=== PATIENT | female | born 1985 | race Caucasian/White ===

== ENCOUNTER 2017-08-26 01:41 | Emergency (ER) | payer OTHER ==
[~2017-08-26] VITALS: Ht 175.3 cm; Wt 114.7 kg
[~2017-08-26 01:41] MED LIST: LEVOTHYROXINE125 MCG; METHYLPHENIDATE36 MG; NORGESTIMATE-E1 EACH; PROTONIX20 MG PO; VALIUM5 MG PO
[2017-08-26 02:18] LABS: BASOPHIL COUNT 0.1 K/uL (0-0.1); EOSINOPHIL (%) 2.6 % (0-5); EOSINOPHIL COUNT 0.3 K/uL (0-0.3); IMMATURE GRANULOCYTE (%) 0.4 % (0.0-0.7); INSTRUMENT ABS NEUTROPHIL CT 5.1 K/uL; LYMPHOCYTE COUNT 3.9 K/uL (1.0-2.8); MCH 29.9 PG (29.0-34.0); MCHC 34.6 G/DL (30.0-36.0); MCV 86.5 FL (83-99); MEAN PLAT.VOLUME 9.2 uM^3 (9.5-12.4); MONOCYTE (%) 6.6 % (3-12); MONOCYTE COUNT 0.7 K/uL (0-0.8); NEUTROPHIL (%) 51.1 % (45-76); NEUTROPHIL COUNT 5.1 K/uL (1.8-6.4); PLATELET COUNT 352 K/uL (156-360); RBC DIS.WIDTH-CV 11.5 % (11.8-14.6); RED BLOOD COUNT 4.51 M/uL (3.80-5.20)
[2017-08-26 02:30] LABS: CHLORIDE 107 mEq/L (99-109); POTASSIUM 3.9 mEq/L (3.7-5.4); SODIUM 141 mEq/L (136-147)
[2017-08-26 02:32] LABS: GLUCOSE 99 mg/dL (70-99)
[2017-08-26 02:33] LABS: ANION GAP 12 MEQ/L (2-14)
[2017-08-26 02:34] LABS: TOTAL BILIRUBIN 0.2 mg/dL (0.0-1.0)
[2017-08-26 02:36] LABS: ALKALINE PHOSPHATASE 89 IU/L (3-129); GFR ESTIMATE (CALCULATED) > 59 mL/min/
[2017-08-26 02:37] LABS: UREA NITROGEN (BUN) 13 mg/dL (9-23)
[2017-08-26 02:39] LABS: LIPASE 23 U/L (1.0-51.0)
[2017-08-26 02:45] LABS: QUANTITATIVE HCG < 4.0 MIU/ML
[2017-08-26 02:51] LABS: ADD MIUA? YES; BILIRUBIN NEGATIVE; BLOOD MODERATE; COLOR YELLOW ((YELLOW)); GLUCOSE (STRIP) NEGATIVE; KETONES 5; LEUKOCYTES TRACE; NITRITE NEGATIVE; PROTEIN (STRIP) NEGATIVE; SPECIFIC GRAVITY 1.023 (1.000-1.030); UROBILINOGEN 0.2 MG/DL (0.2-1.0)
[2017-08-26 02:54] LABS: BACTERIA RARE /HPF; EPITHELIAL CELLS 1+ /HPF; MUCUS TRACE /LPF; RED BLOOD CELLS 0-5 /HPF (0-5); WHITE BLOOD CELLS 0-5 /HPF (0-5)
[2017-08-26 03:10] LABS: INFLUENZA A VIRAL ANTIGEN NEGATIVE; INFLUENZA B VIRAL ANTIGEN NEGATIVE
[2017-08-26] MEDS ORDERED: ZOFRAN ODT4 MG PO (04:20)
[2017-08-26 04:28] VITALS: BP 138/99
== END 2017-08-26 04:30 | disposition home or self-care (01) ==
LOC: EME 01:41
PROVIDERS: Physician Assistant
DX: B34.9 Viral infection, unspecified (principal); F17.200 Nicotine dependence, unspecified, uncomplicated; E03.9 Hypothyroidism, unspecified; F90.9 Attention-deficit hyperactivity disorder, unspecified type
CPT/HCPCS: 71020; 80053; 81003; 83690; 84439; 84443; 84702; 85025; 87502; 87651 90; 99281; 99285; J1885; J7030

== ENCOUNTER 2017-10-20 05:07 | Emergency (ER) | payer OTHER ==
[~2017-10-20] VITALS: Ht 175.3 cm; Wt 110.0 kg
[~2017-10-20 05:07] MED LIST changes: +ZOFRAN ODT4 MG PO
[2017-10-20] MEDS ORDERED: PERCOCET 5/31 TABLET PO (05:19)
[2017-10-20] MEDS ORDERED: NORCO 5/3251 TABLET PO (05:35)
[2017-10-20 05:38] VITALS: BP 122/78
== END 2017-10-20 05:49 | disposition home or self-care (01) ==
LOC: EME 05:07
PROC: 0H98XZZ Drainage of Buttock Skin, External Approach (ICD-10-PCS; principal; 2017-10-20)
DX: L02.31 Cutaneous abscess of buttock (principal); Z88.8 Allergy status to other drugs, medicaments and biological substances
CPT/HCPCS: 87070; 87075; 87077; 87147; 87186; 87205; 99281; 99283